=== PATIENT | female | born 2005 ===

== ENCOUNTER 2025-09-19 06:42 | Outpatient (REF) | payer OTHER, SELFPAY ==
--- NOTE | ~2025-09-19 | US_ITS ---
EXAMINATION: US PELVIS TRANSABDOMINAL AND TRANSVAGINAL HISTORY: HIRSUTISM, PELVIC PAIN COMPARISON: There are no prior studies available for comparison. TECHNIQUE: Transabdominal transvaginal evaluation FINDINGS: LMP:Irregular, 08/24 Uterus: The uterus is anteverted and anteflexed, measuring 8.8 x 3.5 x 4.8 cm. Myometrium has a normal echotexture. No fibroids are identified. Question arcuate uterine morphology. Endometrium: The endometrial stripe measures 12 mm in thickness. Right ovary: The right ovary measures 2.9 x 1.6 x 1.8 cm. Volume 4.1 cc. The right ovary is normal in size and echotexture. Left ovary: The left ovary measures 2.8 x 1.7 x 1.4 cm. Volume 3.6 cc The left ovary is normal in size and echotexture. Pelvic fluid: none. US/US pelvic and transvaginal IMPRESSION: Possible arcuate uterus. No focal uterine lesion.. Additional findings as above. Electronically signed by: Momo Boogie MD 09/20/2025 11:50 AM EST
--- OUTSIDE RECORDS SUMMARY | 2025-09-19 06:46 | XMS_ITS ---
Author Name [facility] Organization Unknown History of Medication Use Medication Directions Dispensed Refills Start Date End Date Stat us lamoTRIgine (LaMICtal) 200 MG tablet Take 1 tablet (200 mg total) by mouth daily active Problems Problem Status Onset Date Problem Type Date of Resolution Source Encounter for other administrative examinations active EncounterDiagnosisAct [facility] Encounters Encounter Type Encounter Reason Primary Diagnosis Location Date Ambulatory Sports Physical Encounter for ot her administrative examinations [facility] 03/28/2025 Care Team Organization Name Specialty Phone Email Start Date End Da te [facility] SANDI BOSWELL Primary Care 03/28/2025
--- OUTSIDE RECORDS SUMMARY | 2025-09-19 06:46 | XMS_ITS | Clinical Summary ---
Author Organization [facility] Address [address] [place] [id number] Phone Care Team Providers Care Frozen [employer] Manager Name Role Phone Jacqueline Boswell MD Primary Care Provider [phone] Allergies No known active allergies Medications No known medications Active Problems Problem Noted Date Diagnosed Date Fracture of right ankle 10/13/2023 Overview (11/03/2023): DOI 09/26/23. [place] [facility]. Lateral malleolus, nondisplaced. Treat with boot. 11/03/23. Transition to brace. F/u as needed. Myopia 03/24/2023 Dislocation of left patella 03/19/2023 Overview (03/25/2023): 03/2023 Mechanism of injury and current symptoms concerning for ligamentous/tendonous injury or tear. Recommend evaluation by Orthopedics. Gave contact information for [facility]. Patient will call to schedule appointment. 03/2023: seen by Marian. Closed dislocation left patella. Plan brace, PT and MRI Assessment & Plan (03/19/2023 2:49 PM EDT): Mechanism of injury and current symptoms concerning for ligamentous/tendonous injury or tear. Recommend evaluation by Orthopedics. Gave contact information for [facility]. Patient will call to schedule appointment. Adjustment disorder with mixed anxiety and depre ssed mood 12/18/2021 Overview (03/25/2024): 12/2021- met with for kandy, pt has been looking for a therapist for over a year, will utilize as a bridge. Issues related to general stress, periods of depression, sleep impairment 03/2024: talking to therapist-helpful Assessment & Plan (03/19/2022 10:57 AM EDT): Patient with overall racing thoughts, feeling overwhelmed, periods of depression in the context of dealing with school stress and family dynamics. PLAN: 1. Follow up with [facility] three weeks 2. Patient goal is to manage emotions in a healthier way, deal with racing thoughts. 3. Behavioral Recommendations: a. Pt will utilize at least one positive self talk statement per week Body mass index (BMI) of 85t h to less than 95th percentile for age in pediatric patient 07/25/2020 At risk for tuberculosis 06/29/2019 Overview (03/29/2024): Born in [place], likely received BCG (scar on right upper arm), mom/pt do not think had PPD. Last visit was in 2014. Will likely need Tspot for college. Tspot ordered 03/2024 negative Resolved Problems Problem Noted Date Diagnosed Date Resolved Date Need for case management follow-up 06/22/2023 03/25/2024 Overview (06/22/2023): 06/22/2023: labs ordered on 03/24/23 canceled per protocol Need for vaccination 06/29/2019 020 Overview (06/29/2019): At first visit, we had incomplete vaccination records. Unknown if she had TdaP or Menactra age 9 or 10. Also not sure if has started Hep A or HPV series. Will try to get records from previous practice in [place]. Immunizations Immunization Administration Dates Next Due COVID-19 Pfizer, monovalent, 12+ years 2,11/04/2021 DTaP 11/05/2004, 4,2003,06/27 HPV Vaccine 9 Valent 10/30/2021,07/25/2020,06/29 Hep A, ped/adol 07/25/2020,06/29/2019 Hep B, ped/adol 2003,2003,2003 IPV 05/20/2008, 5,2003,08/29,2003 Influenza, injectable, quadr ivalent, preservative free 07/25/2020,06/29/2019 MMR 09/06/2004,05/28/2004 Meningococcal B Bexsero 03/24/2023,10/30/2021 Meningococcal Conj (Menactra) MCV4P 06/30/2019 Pneumococcal Conjugate 05/28/2004,2003 Tdap 06/30/2019 Varicella 01/28/2005,2004 Family History Medical History Relation Name Comments No Known Problems Father No Known Problems Mother Relation Name Status Comments Father Mother Social History Tobacco Use Types Packs/Day Years Used Date Smoking Tobacco: Never Smokeless Tobacco: Never Alcohol Use Standard Drinks/Week Comments Never 0 (1 standard drink = 0.6 oz pur e alcohol) Hunger/Food Answer Date Recorded In the last 12 months, did y ou or your family ever eat less than you felt you should because there wasn't enough money for food? No 03/22/2024 Stable Housing Answer Date Recorded Are you worried that in the next 2 months you may not have stable housing? No 03/22/2024 Transportation Concerns Answer Date Rec orded In the last 12 months, have you or your family ever had to go without healthcare because you didn't have a way to get there? No 03/22/2024 Hazards in Home Answer Date Recorded Think about the place you li ve. Do you have problems with any of the following? Pests (mice or roaches), mold, no/not working smoke detectors, water leaks, no window guards. No 2023 Financing Utilities Answer Date Recorde d In the last 12 months, has t he electric, gas, oil, or water company threatened to shut off your services in your home? No 03/22/2024 Safety at Home Answer Date Recorded Are you or your family worried about feeling saf e in your home? No 03/22/2024 Outside Support Answer Date Recorded Do you feel that you need mo re support from other people or programs to help you care for yourself or your family? No 03/22/2024 Understanding Health Concerns Answer Da te Recorded Do you need help understandi ng your or your child's healthcare needs (diagnosis, medications, plan, etc.)? No 03/22/2024 Financing Health Concerns Answer Date R ecorded In the last 12 months, was t here a time when your child needed to see a doctor or get medications or supplies but could not because of cost? No 03/22/2024 Missing School or Work Answer Date Miguel rded Did you or your child miss s chool or work because of a health problem that could have been avoided? No 03/22/2024 Child Education Answer Date Recorded Do you have concerns about y our/your child's learning or behavior in school, preschool, or daycare? No 03/22/2024 Comments Unknown Sex and Gender Information Value Date Recorded Sex Assigned at Not on file Legal Sex Female 1:42 PM EDT Gender Identity Female 12/04/2021 2:04 PM EST Sexual Orientation Straight 07/25/2020 3: 18 PM EDT Last Filed Vital Signs Vital Sign Reading Time Taken Comments Blood Pressure 127/81 03/25/2024 1:18 PM EDT Pulse 80 03/25/2024 1:18 PM EDT Temperature - - Respiratory Rate - - Oxygen Saturation - - Inhaled Oxygen Concentration - - Weight 80.7 kg (178 lb) 03/25/2024 1:18 PM EDT Height 165.1 cm (5' 5 ) 03/25/2024 1:18 PM EDT Body Mass Index 29.62 03/25/2024 1:18 PM EDT Plan of Treatment Health Maintenance Due Date Last Done Comments Chlamydia and Gonorrhea Screening 10/12/2024 03/25/2024 Influenza Vaccines (#1) 2025 07/25/2020, 06/29 COVID-19 Vaccine ( season) 2025 11/25/2021, 11/04/2021 DTaP,Tdap,and Td Vaccines (6 - Td or Tdap) 06/30/2029 06/30/2019, 11/05/2004, 2003, Additional history exists Hepatitis B Vaccines Completed 2003, 2003, 2003 Pneumococcal Vaccine Aged Out 05/28/2004, 12/28/19 04 No longer eligible based on patient's age to complete this topic MMR Vaccines Completed 09/06/2004, 05/28/2004 Varicella Vaccines Completed 01/28/2005, 2004 IPV Vaccines Completed 05/20/2008, 03/12, 2003, Additional history exists Meningococcal Vaccine Completed 06/30/2019 Hepatitis A Vaccines Completed 07/25/2020, 06/29/20 HPV Vaccines Completed 10/30/2021, 07/12, 06/29/2019 Men B Vaccine Completed 03/24/2023, 10/30/2021 HIB Vaccines Aged Out No longer eligi ble based on patient's age to complete this topic Procedures * Due to [place] wikifolio law, this organization might not be sharing sensitive test results. Procedure Name Priority Date/Time Associated Diagnosis Comments CHLAMYDIA AND GONORRHEA, AMPLIFIED Routine 03/25/2024 4:08 PM EDT Routine screening for STI (sexually transmitted infection) from Last 3 Months or Most Recently Relevant to Health Maintenance Results * Due to [place] wikifolio law, this organization might not be sharing sensitive test results. * Chlamydia and Gonorrhea, Amplified (03/25/2024 4:08 PM EDT) GONOR AMPL PROBE Negative Negative [facility] Chlam Ampl Probe Negative Negative [facility] Comment:Medical Records Secretary: FILEMON LEDESMA Urine (Urine) 03/25/2024 4:0 8 PM EDT Narrative [facility] - 03/28/2024 10:41 AM EDT [facility] [place], [place] [address] Provider: JACQUELINE BOSWELLCopberta To: Source:UrineSp Desc: UrineCollection Date/Time: [id number] Source: UrineThis test is approved for vaginal, endocervical, thin prep and urine specimens. The reliability of testing from other sites has not been established. This assay is not intended to be used as a test of cure; a culture is suggested.Testing performed using the [employer] real time PCR platform. us Jacqueline Boswell MD LAB MICROBIOLOGY - GENERA L ORDERABLES Final Result [facility] from Last 3 Months or Most Recently Relevant to Health Maintenance Insurance [facility] [employer] [facility] NON PCC Care Teams Frozen Foods Manager Relationship Specialty Start Date End Date Jacqueline Boswell MD [address] [facility] [address] [place] [address] PCP - General Pediatrics 06/20/19
== END 2025-09-19 06:43 | disposition home or self-care (01) ==
LOC: HO.UMASIMG 06:42
PROVIDERS: Visit Provider Family Medicine
DX: L68.0 Hirsutism (principal); F43.22 Adjustment disorder with anxiety; N92.6 Irregular menstruation, unspecified; Z23 Encounter for immunization; N76.0 Acute vaginitis; R10.20 Pelvic and perineal pain unspecified side
CPT/HCPCS: 76830; 76856